=== PATIENT | male | born 1990 | race Caucasian/White ===

== ENCOUNTER 2017-04-22 14:31 | Emergency (ER) | payer OTHER ==
[~2017-04-22] VITALS: Ht 185.4 cm; Wt 68.0 kg
[~2017-04-22 14:31] MED LIST: ALBUTEROL INH INH; CLEOCIN HCL150 MG PO; HYDROCODONE-APA1 TA1 PO; IBUPROFEN 800800 M1 PO; KEFLEX500 MG PO; NOHOMEMEDICATIONS; NORCO 5-325 TA1 EAC1 PO; ROBAXIN 750 MG750 MG PO; TESSALON200 MG PO; ULTRAM 50MG TAB50 MG PO; ZPAK PO
[2017-04-22] MEDS ORDERED: IBUPROFEN 600600 M1 PO (14:58)
[2017-04-22] MEDS ORDERED: KEFLEX500 M1 PO (14:58)
[2017-04-22] MEDS ORDERED: TRAMADOL 50 MG50 MG PO (14:58)
[2017-04-22 15:15] VITALS: BP 152/81
== END 2017-04-22 15:16 | disposition home or self-care (01) ==
LOC: M.ERS 14:31
DX: K02.9 Dental caries, unspecified (principal); F17.210 Nicotine dependence, cigarettes, uncomplicated; Z88.1 Allergy status to other antibiotic agents; Z88.0 Allergy status to penicillin